=== PATIENT | male | born 1970 | race African-American/Black ===

== ENCOUNTER → 2016-12-09 | Outpatient (CLI) | payer BC ==
[2016-12-09 11:34] LABS: Anisocytosis Slight; Basophils % (A) 1 %; CH 26.5; CHCM 30.7; Eosinophils # (A) 0.2 k/uL (0-0.7); Eosinophils % (A) 3 %; HCT 44.1 % (39.0-53.0); HDW 4.51; HGB 13.5 gm/dL (13.0-17.5); Hypochromasia Marked; Luc # (Auto) 0.17; Luc % (Auto) 3; Lymphocytes # (A) 1.9 k/uL (1.0-4.8); Lymphocytes % (A) 27 %; MCH 26.8 pg (25.0-35.0); MCHC 30.6 g/dL (31.0-37.0); MCV 87.5 fL (80.0-100.0); Mean Platelet Volume 6.4; Monocytes # (A) 0.3 k/uL (0-1.0); Monocytes % (A) 4 %; Neutrophils # (A) 4.4 k/uL (1.3-7.7); Neutrophils % (A) 62 %; Poikilocytosis Moderate; RBC 5.04 m/uL (4.30-5.90); RDW 17.8 % (11.5-15.5); WBC 7.1 k/uL (3.8-10.6); WBC (Perox) 7.41
[2016-12-09 11:56] LABS: ALT 46 U/L (21-72); AST 43 U/L (17-59); Alkaline Phosphatase 89 U/L (38-126); Anion Gap 11 mmol/L; Bilirubin, Delta 0.3 mg/dL (0.0-0.2); Blood Urea Nitrogen 11 mg/dL (9-20); Calcium 9.4 mg/dL (8.4-10.2); Carbon Dioxide 26 mmol/L (22-30); Chloride 104 mmol/L (98-107); Cholesterol 192 mg/dL (<200); Glucose 97 mg/dL (74-99); HDL Cholesterol 38 mg/dL (40-60); Non-African American GFR(MDRD) >60 (>60 ml/min/1.73 sqM); Potassium 4.4 mmol/L (3.5-5.1); Sodium 141 mmol/L (137-145); Total Bilirubin 1.1 mg/dL (0.2-1.3); Total Protein 8.6 g/dL (6.3-8.2); Triglycerides 94 mg/dL (<150)
== END | disposition home or self-care (01) ==
LOC: LABWHC1 10:53
PROVIDERS: ATTEND Psychiatry & Neurology Psychiatry
DX: Z51.81 Encounter for therapeutic drug level monitoring (principal)
CPT/HCPCS: 36415; 80053; 80061; 82248; 82306; 84439; 84443; 85025

== ENCOUNTER → 2018-02-12 | Outpatient (CLI) | payer BC ==
--- NOTE | 2018-02-12 13:58 | XR ---
EXAMINATION TYPE: XR clavicle RT DATE OF EXAM: 02/12/2018 COMPARISON: NONE HISTORY: Pain TECHNIQUE: 2 views submitted FINDINGS: AC joint maintained. Osseous structures intact. No acute fracture or dislocation. IMPRESSION: No definite acute process. If symptoms are persistent correlate with MRI.
== END | disposition home or self-care (01) ==
LOC: RADXRMAIN 13:28
PROVIDERS: ATTEND Family Medicine
DX: M25.511 Pain in right shoulder (principal)

== ENCOUNTER → 2018-05-14 | Outpatient (CLI) | payer BC ==
--- NOTE | 2018-05-14 16:29 | US ---
EXAMINATION TYPE: US extremity nonvasc complete RT, sternoclavicular joint DATE OF EXAM: 05/14/2018 COMPARISON: NONE CLINICAL HISTORY: 47-year-old male with pain for 3 to 4 months, S43.61XASprain of right sternoclavicu lar joint. TECHNIQUE: Multiple sonographic images of the right sternoclavicular joint were obtained and addition al scanning of the right first costosternal junction. Comparison images were taken of the contralater al side. FINDINGS: The right sternoclavicular joint appears intact and also appears symmetrical to the contralateral justyna e. However, scanning just below at the site of patient's visible and palpable abnormality corresponds to bony irregularity and hyperostosis at the right first costosternal junction. IMPRESSION: 1. The right sternoclavicular joint appears intact and symmetrical to the contralateral side by ultra sound. 2. Scanning at the patient's visible and palpable abnormality corresponds to bony irregularity and hy perostosis at the right first costosternal junction. Findings may reflect costochondritis or posttrau matic/mechanical stress related chondral ossification.
== END | disposition home or self-care (01) ==
LOC: RADUSWWP 09:36
PROVIDERS: ATTEND Family Medicine
DX: S43.61XA Sprain of right sternoclavicular joint, initial encounter (principal)

== ENCOUNTER 2024-03-01 16:10 | Emergency (ER) | payer BC, OTHER ==
[2024-03-01 16:34] VITALS: TEMP 98.7
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
[2024-03-01 18:11] VITALS: BP 104/72; PULSE 77; RESP 18
== END 2024-03-01 18:10 | disposition home or self-care (01) ==
LOC: EC 16:10
DX: M25.551 Pain in right hip (principal); F17.200 Nicotine dependence, unspecified, uncomplicated; V89.2XXA Person injured in unspecified motor-vehicle accident, traffic, initial encounter; Y92.410 Unspecified street and highway as the place of occurrence of the external cause
CPT/HCPCS: 73502; 99284

== ENCOUNTER → 2024-07-04 | Outpatient (CLI) | payer BC ==
--- NOTE | 2024-07-05 07:39 | XR ---
EXAMINATION TYPE: XR cervical spine limited DATE OF EXAM: 07/04/2024 COMPARISON: NONE CLINICAL INDICATION: Male, 54 years old with history of M54.2 NECK PAIN; TECHNIQUE: 3 views are submitted. FINDINGS: The odontoid is intact. There are no compression deformities. The prevertebral soft tissue structur es are within normal limits. Straightening of the cervical spine with hypertrophic and degenerative changes C5-6, C6-C7 and C7-T1. Lung apices clear. Grade 1 retrolisthesis C4-C5. IMPRESSION: 1. Multilevel degenerative disc disease most marked at lower cervical spine. [facility], , 07/05/2024 7:37 AM
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
== END | disposition home or self-care (01) ==
LOC: RADXRMAIN 16:29
PROVIDERS: ATTEND Family Medicine
DX: M50.33 Other cervical disc degeneration, cervicothoracic region (principal); M43.12 Spondylolisthesis, cervical region; M19.012 Primary osteoarthritis, left shoulder
CPT/HCPCS: 72040